=== PATIENT | female | born 1990 | race Caucasian/White ===

== ENCOUNTER 2018-12-11 11:37 | Emergency (ER) | payer OTHER, MEDICAID ==
[~2018-12-11] VITALS: Ht 167.6 cm; Wt 67.2 kg
--- NOTE | 2018-12-11 12:25 | NUR ---
assumed care of pt. pt c/o mulitple episodes of vomiting x1 day and 1 episode of loose stool. pt reports that she is local and has not had any recent sick contacts. denies . denies pain. pt ambualted to [facility] for urine sample
--- NOTE | 2018-12-11 12:35 | NUR ---
urine sample collected and sent. Dr Up at bedside for eval
[2018-12-11 12:39] LABS: MEAN CORPUSCULAR HEMOGLOBIN 32.3 pg (27.0-34.8); MEAN CORPUSCULAR HGB CONC 33.2 g/dL (32.4-35.8); MEAN CORPUSCULAR VOLUME 97.3 fL (80-100); MEAN PLATELET VOLUME 8.5 fL (7.4-10.4); PLATELET COUNT 179 x10^3/uL (130-400); RED BLOOD COUNT 4.61 x10^6/uL (3.82-5.3); RED CELL DISTRIBUTION WIDTH 13.4 % (9.6-15.2)
[2018-12-11 12:49] LABS: ALBUMIN 4.2 g/dL (3.4-5.0); ANION GAP 8 mmol/L (5-15); CHLORIDE 110 mmol/L (98-107); CREATININE 0.87 mg/dL (0.55-1.02)
[2018-12-11 12:53] LABS: CULTURE INDICATED? NO; MICROSCOPIC AUTO
--- NOTE | 2018-12-11 12:55 | NUR ---
pt to [facility] via [facility]
[2018-12-11] MEDS ORDERED: METOCLOPRAMIDE 5 MG/ML, 2ML IVPush ONE (13:00)
[2018-12-11] MEDS ORDERED: SODIUM CHLORIDE 0.9% 1,000ML IVBOLUS ONE (13:00)
[2018-12-11] MEDS ORDERED: ONDANSETRON 2MG/ML, 2ML IVPush ONE (13:00)
[2018-12-11 13:04] LABS: BASOPHILS % (AUTO) 0 % (0-1); EOSINOPHILS # (AUTO) 0.01 x10^3/uL (0-0.4); EOSINOPHILS % (AUTO) 0 % (1-7); LYMPHOCYTES # (AUTO) 0.29 x10^3/uL (1-3.4); LYMPHOCYTES % (AUTO) 3 % (22-44); MD SCAN; MONOCYTES # (AUTO) 0.09 x10^3/uL (0.2-0.8); MONOCYTES % (AUTO) 1 % (2-9); NEUTROPHILS # (AUTO) 9.18 x10^3/uL (1.8-6.8); NEUTROPHILS % (AUTO) 96 % (42-75)
--- NOTE | 2018-12-11 13:13 | NUR ---
pt was seen at [facility] and given phenergan IM but reports no relief of sx
[2018-12-11] MEDS ORDERED: METOCLOPRAMIDE 5 MG/ML, 2ML ONE (13:15)
[2018-12-11] MEDS ORDERED: ONDANSETRON 2MG/ML, 2ML ONE (13:15)
--- NOTE | 2018-12-11 13:40 | NUR ---
warm blankets given, lights dimmed and pt positioning for comfort
--- NOTE | 2018-12-11 14:10 | NUR ---
pt resting with eyes closed. no vomiting. reports feeling better after meds
--- NOTE | 2018-12-11 14:15 | NUR ---
NS bolus completed
--- NOTE | 2018-12-11 14:27 | NUR ---
Task RN: Provided pt water for PO challenge. Pt appreciative. Pt denies pain at this time. NADN. No other needs expressed. DC PIV fluids per [facility] as they finished infusing. Call light within reach. Both bedrails up x 2.
--- NOTE | 2018-12-11 14:46 | NUR ---
pt has had no vomiting after PO challenge. notified
--- NOTE | 2018-12-11 14:59 | NUR ---
this pt is being D/c by another RN
--- NOTE | 2018-12-11 15:02 | NUR ---
Patient given discharge instructions and they have confirmed that they understand the instructions. Patient ambulatory with steady gait. Pt left with all personal belongings, dc paperwork, and prescriptions. Pt encouraged to return to ED if symptoms worsen or change.
[2018-12-11 15:03] VITALS: BP 99/55
== END 2018-12-11 15:07 | disposition home or self-care (01) ==
LOC: ED 13:15
DX: R11.2 Nausea with vomiting, unspecified (principal)
CPT/HCPCS: 36415; 74021; 80048; 81001; 82040; 84703; 85025; 96361; 96374; 96375; 99284; J2405; J2765; J7030